=== PATIENT | female | born 2000 | race Caucasian/White ===

== ENCOUNTER 2019-12-04 23:01 | Emergency (ER) | payer BC ==
--- NOTE | 2019-12-04 23:23 | ED ---
Psychiatric Complaint - HPI Summary HPI Summary: This patient is a 19 year old F presenting to [facility] by EMS with a chief complaint of thoughts of hurting herself. Friends called for pt to be brought in. After pt had been drinking, she was talking about hurting herself. she denies wanting to hurt herself at this time. She reports she does not have thoughts about hurting herself when she is sober. Pt had 6 shots and 2 white claws tonight. while home from school on break for 6 weeks she has not drank. Pt has no medical problems, is not allergic to anything, has no FHx or SHx. Pt had her last period 2 weeks ago. - History Of Current Complaint Chief Complaint: EDMentalHealth Time Seen by Provider: 12/04/19 23:06 Hx Obtained From: Patient Hx Last Menstrual Period: 2 weeks ago ?: No Onset/Duration: Resolved Timing: Intermittent Episode Lasting Severity Currently: None Aggravating Factor(s): Alcohol Use Alleviating Factor(s): Nothing Associated Signs And Symptoms: Positive: Negative Has Suicidal: Reports: Thoughts Ingestion History: Type/Name Of Drug - EtOH - Allergies/Home Medications Allergies/Adverse Reactions: Allergies Allergy/AdvReac Type Severity Reaction Status Date / Time No Known Allergies Allergy Verified 12/05/19 00:08 Home Medications: Home Medications NK [No Home Medications Reported] 12/05/19 [History Confirmed 12/05/19] PMH/Surg Hx/FS Hx/Imm Hx Sensory History: Denies: Hx Legally Blind Opthamlomology History: Denies: Hx Legally Blind EENT History: Denies: Hx Deafness - Surgical History Surgical History: None Infectious Disease History: No Infectious Disease History: Denies: Traveled Outside the [place] in Last 30 Days - Family History Known Family History: Negative: Hypertension, Diabetes - Social History Occupation: Student Lives: Dormitory/Roommates Alcohol Use: Rare Substance Use Type: Reports: None Smoking Status (MU): Never Smoked Tobacco Review of Systems Positive: Slurred Speech Positive: Depressed All Other Systems Reviewed And Are Negative: Yes Physical Exam - Summary Physical Exam Summary: General: Well-developed, Well-nourished Intoxicated female. No acute distress. HEENT: Normocephalic, Atraumatic. Eyes: Conjuctiva normal, PERRL. Oropharynx: Clear, mucous membranes moist, (-) exudates. Neck: Soft, FROM, (-) lymphadenopathy, (-) thyromegaly, (-) JVD. Cardiovascular: Normal sinus rhythm, (-) murmur. Lungs: Clear to auscultation bilaterally (-) wheezes, (-) rales, (-) rhonchi. Abdomen: Soft, non-tender, non-distended, (-) organomegaly, normal bowel sounds. Back: (-) CVA tenderness Extremities: No edema. Skin: Warm, dry, (-) rash. Neuro: Alert and oriented x3, Slurs words. Psychiatric: Mood normal, affect normal. Triage Information Reviewed: Yes Vital Signs On Initial Exam: Initial Vitals Temp Pulse Resp BP Pulse Ox 97.0 F 78 16 124/74 97 12/04/19 23:05 12/04/19 23:05 12/04/19 23:05 12/04/19 23:05 12/04/19 23:05 Vital Signs Reviewed: Yes Procedures - Sedation Patient Received Moderate/Deep Sedation with Procedure: No Diagnostics - Vital Signs Vital Signs Temp Pulse Resp BP Pulse Ox 12/04/19 23:05 97.0 F 78 16 124/74 97 - Laboratory Result Diagrams: 12/04/19 23:37 12/04/19 23:37 Lab Statement: Any lab studies that have been ordered have been reviewed, and results considered in the medical decision making process. Re-Evaluation - Re-Evaluation First Eval Re-Evaluation Time: 03:00 Comment: Pt is medically cleared. Second Eval Re-Evaluation Time: 04:35 Comment: Mental Health P[employer] Picking [employer] Tender cleared pt. Course/Dx - Course Course Of Treatment: 19 year old female presents from [facility] acute alcohol intoxication. after drinking a significant amount of alcohol tonight patient started talking about hurting herself. her friends became concerned and sent her to ED on ambulance for evaluation.she denies suicidal ideation at this time. admits to talking about hurting herself when she drinks. no other significant findings on physical. workup demonstrates an alcohol level of 180. patient has mental health evaluation when deemed sober. antonio is released to care of her mother who drove here from [place] when she heard from patient's friends that she was here. - Differential Dx/Clinical Impression Provider Diagnosis: Anxiety, Acute alcohol intoxication Discharge ED - Sign-Out/Discharge Documenting (check all that apply): Patient Departure - Discharge - Discharge Plan Condition: Good Disposition: HOME Patient Education Materials: Stress (ED), Alcohol Intoxication (ED), Abuse of Alcohol (ED), Anxiety (ED) Referrals: No Primary Care Phys,NOPCP [Primary Care Provider] - Additional Instructions: Per completion of a mental health evaluation, you are cleared for release and do not require inpatient psychiatric hospitalization at this time. Please go to nearest emergency room or call 911 if safety concerns arise or condition worsens. Important Phone Number [facility] : 24 hour crisis line [phone] [facility] [phone] Suicide Prevention and Crisis Services........................ [phone] National Suicide Prevention Lifeline............................ 907-979-VDAR (3431) [facility]....................... [phone] Alcoholics Anonymous............................................... [phone] [facility].............. [phone] [facility] Police.............................................. Substance Abuse Treatment Programs [facility] [phone] Alcohol and Drug [facility] - Billing Disposition and Condition Condition: GOOD Disposition: Home - Attestation Statements Document Initiated by Scribe: Yes Documenting Scribe: Estefany Garcia Provider For Whom Scribe is Documenting (Include Credential): Dr. Tracie Shah MD Scribe Attestation: I, Estefany Garcia, scribed for Dr. Tracie Shah MD on 12/05/19 at 0654. Scribe Documentation Reviewed: Yes Provider Attestation: The documentation as recorded by the jongibEstefany alvarez accurately reflects the service I personally performed and the decisions made by me, Dr. Tracie Shah MD Status of Scribe Document: Viewed
[2019-12-04 23:24] LABS: Urine Appearance Clear; Urine Bilirubin Negative (Negative); Urine Blood Negative (Negative); Urine Color Straw; Urine Glucose Negative (Negative); Urine Ketones Negative (Negative); Urine Nitrite Negative (Negative); Urine Protein Negative (Negative); Urine Specific Gravity 1.005 (1.010-1.030); Urine Urobilinogen Negative (Negative)
[2019-12-04 23:41] LABS: Urine Benzodiazepine Screen None Detected (None Detect); Urine Opiates Screen None Detected (None Detect)
[2019-12-04 23:47] LABS: Hematocrit 38 % (35-47); Mean Corpuscular HGB Conc 34 g/dL (31-36); Mean Corpuscular Hemoglobin 31 pg (27-31); Mean Corpuscular Volume 90 fL (80-97); Mean Platelet Volume 7.7 fL (7.4-10.4); Platelet Count 206 10^3/uL (150-450); Red Blood Count 4.24 10^6 /uL (3.70-4.87); Red Cell Distribution Width 13 % (10-15)
[2019-12-04 23:49] LABS: ABS Basophils 0.1 10^3/ul (0-0.2); ABS Eosinophils 0.1 10^3/ul (0-0.6); ABS Lymphocytes 1.5 10^3/ul (1.0-4.8); ABS Monocytes 0.6 10^3/ul (0-0.8); ABS Neutrophils 3.8 10^3/ul (1.5-7.7); Eosinophil % 0.8 %; Lymphocyte % 24.5 %
[2019-12-05 00:02] LABS: ALT 17 U/L (7-52); AST 24 U/L (13-39); Albumin 4.3 g/dL (3.2-5.2); Alkaline Phosphatase 62 U/L (34-104); Anion Gap 11 mmol/L (2-11); BUN/Creatinine Ratio 16.3 (8-20); Blood Urea Nitrogen 13 mg/dL (6-24); CO2 Carbon Dioxide 24 mmol/L (22-32); Calcium 8.6 mg/dL (8.6-10.3); Chloride 103 mmol/L (101-111); EGFR African American 110.7 (>60); EGFR Non-African American 91.4 (>60); Globulin 2.1 g/dL (2-4); Glucose 100 mg/dL (70-100); Potassium 3.6 mmol/L (3.5-5.0); Sodium 138 mmol/L (135-145); Total Protein 6.4 g/dL (6.4-8.9)
[2019-12-05 00:09] LABS: Acetaminophen < 15 mcg/mL; Alcohol 180 mg/dL (<10); HCG Pregnancy < 0.60 mIU/mL; Salicylate < 2.50 mg/dL (<30)
[2019-12-05 00:23] LABS: TSH (Thyroid Stimulating Horm) 2.64 mcIU/mL (0.34-5.60)
[2019-12-05 04:56] VITALS: BP 113/72
== END 2019-12-05 04:54 | disposition home or self-care (01) ==
LOC: ED 23:01
DX: F10.129 Alcohol abuse with intoxication, unspecified (principal); Y90.6 Blood alcohol level of 120-199 mg/100 ml; F41.9 Anxiety disorder, unspecified
CPT/HCPCS: 36415; 80053; 80307; 80320; 80329; 81003; 84443; 84702; 85025; 99283; G0480